=== PATIENT | female | born 1970 | race Caucasian/White ===

== ENCOUNTER 2016-05-01 18:12 | Emergency (ER) | payer SELFPAY ==
[2016-05-01 18:43] VITALS: TEMP 97.4; BMI 31.3
--- NOTE | 2016-05-01 19:05 | EDPRACDOC ---
- General Information Chief Complaint: Anxiety Illness Stated Complaint: ANXIETY? Time Seen by Provider: 05/01/16 18:57 Mode Of Arrival: Car Home Medications: Home Medications Furosemide [Lasix] 20 - 40 mg PO BID 01/25/16 Hydrochlorothiazide 25 mg PO DAILY 01/25/16 Potassium Chloride 10 meq PO DAILY 01/25/16 Alprazolam [Xanax] 1 mg PO TID PRN #10 tablet 05/01/16 Hydrocodone Bit/Acetaminophen [[place] 10-325 Tablet] 1 tab PO TID PRN #10 tablet 05/01/16 Tramadol HCl [Ultram] 50 mg PO TID PRN #10 tablet 05/01/16 Allergies/Adverse Reactions: Allergies Allergy/AdvReac Type Severity Reaction Status Date / Time No Known Allergies Allergy Verified 01/25/16 06:56 - History of Present Illness Onset: 5 days HPI: PT COMPLAINS OF N/V AND GENERALIZED SWELLING X 5 DAYS, STATES OUT OF HER XANAX, HYDROCODONE AND ULTRAM FOR 5 DAYS. FAMILY STATES SHE HAS HAD FACIAL SWELLING AND SWELLING TO EXTREMITIES SINCE BEFORE , STATES WAS PLACED ON LASIX TEMPORARILY WITHOUT RELIEF. Symptoms Occured: Reports: Spontaneous Duration: Reports: Intermittent Emesis: Reports: Food Particles Recent: Reports: None Pain Quality: Reports: Cramping Pain Severity: Mild Pain Location: Reports: Diffuse : No History of: Denies: Abdominal Surgery, UTI, Ectopic, PID, Urolithiasis, Similar Pain (dx) Relevant History of: Denies: Abdominal Surgery, Diabetes, Contact Exposure, Hydrocephalus, HIV, Immunosuppression, Irritable Bowel Disease, Cystic Fibrosis , Lactose Intolerance, None, O Associated Signs & Symptoms: Reports: Nausea, Vomiting, Diarrhea, Chills. Denies: Frequency, Vaginal Bleeding, Hematemesis, Anorexia, Melena, Dysuria, Fever, Urgency, Hematuria, Vaginal Discharge Oral Intake: Decreased Urinary Output: Normal ED Past Medical History - History Reviewed Yes Nurses notes reviewed and agree except as marked - Patient Medical History Cardiac History: Reports: Hypertension GI/ History: Reports: Kidney Stones Psychological History: Reports: Depression (not medicated), Anxiety Additional Past Medical History: CHRONIC BACK PAIN Surgical History: Reports: Cholecystectomy. Denies: Hysterectomy - Social Medical History Smoking Status: Heavy tobacco smoker (5 or more cigarettes/day or daily pipe/ cigar) ETOH: Social Substance Abuse: None EDM Review of Systems - Review of Systems Constitutional: Fatigue. negative: Chills, Fever Eyes: negative: Blurred Vision, Double Vision Ears: negative: Drainage Throat: negative: Pain Nose: negative: Congestion, Discharge Respiratory: negative: Cough, Shortness of Breath, Wheezing Cardiovascular: Edema. negative: Chest Pain, Palpitations Gastrointestinal: Diarrhea, Nausea, Pain, Vomiting Genitourinary: negative: Dysuria, Frequency Neurological: Dizziness, Numbness. negative: Headache, Weakness Musculoskeletal: No Symptoms Reported Integumentary: No Symptoms Reported - Physical Exam Constitutional: No apparent distress, Alert (Awake), Restless Oriented to: Time, Person, Place Last recorded Vital Signs: Last Vital Signs Temp 97.4 F L 05/01/16 18:36 Pulse 117 05/01/16 18:36 Resp 22 05/01/16 18:36 BP 171/94 05/01/16 18:36 Pulse Ox 96 05/01/16 18:36 Oxygen Pulse Oxygen Saturation 96 O2 Device Oxygen Flow Rate Fraction of Inspired Oxygen ( FIO2) - HEENT Head: Normal ( normocephalic) Eye Exam: Normal (PERRL, EOMI, Sclera white) Oropharynx: Normal (Pharynx:Moist without exudate,Gums-no swelling) Tympanic Membrane: Normal ENT EAC: Normal TMJ: Normal Nose: No Symptoms Reported (septum midline) Neck: Normal (FROM, trachea at midline) - Respiratory/Cardiovascular Respiratory: Normal - CTA (BBS clear to auscultation without adventitious sounds ) Cardiovascular: Normal (RRR without murmur, gallop or rub) - GI Auscultation: Normal (NABS) Palpation: Normal (Soft,No rebound or guarding, non distended) Tenderness: Non tender Bowman's Sign: Negative - Musculoskeletal Back: Normal (Non-Tender) Extremities: Normal (Normal tone, Pulses 2+ No cyanosis or edema, FROM) - Integumentary Skin: Normal, Warm, Dry Lymphatics: Normal (no adenopathy) - Neurologic Memory Impaired: Normal Motor Function: Normal (Normal tone, Pulses 2+ No cyanosis or edema, FROM) Cranial Nerve: Normal (CN II-X11 intact sensation, strength 5/5) Cerebellar: Normal Mood Description: Anxious Thought: Coherent Perception: Normal - Differential Diagnosis Gastritis, Gastroenteritis, IBD, Pancreatitis, Other (OPIATE/BENZO WITHDRAWL) - Re-evaluation Re-evaluation 1 Re-evaluation Time: 20:47 ( STATES SHE HAS BEEN DRINKING ABOUT A PINT OF LIQUOR A DAY RECENTLY AND NOT EATING WELL) Re-evaluation 2 Re-evaluation Time: 22:46 (IMPROVED NO FURTHER VOMITING IN ED, SUSPECT SYMPTOMS RELATED TO WITHDRAWAL, PT STATES PCP WILL NOT BE OPEN UNTIL THURSDAY.) - Results 05/01/16 19:34 05/01/16 19:34 Decision Time to Discharge: 22:50 - Departure Disposition: Home Condition: Stable Final Diagnosis: ACUTE NAUSEA AND VOMITING, Opiate withdrawal Benzodiazepine withdrawal Qualifiers: Complication of substance-induced condition: uncomplicated Qualified Code(s): F13.230 - Sedative, hypnotic or anxiolytic dependence with withdrawal, uncomplicated Instructions: Acute Nausea and Vomiting (ED) Education/Counseling Given To: Patient Education/Counseling Given Regarding: Diagnosis, Treatment, Prognosis, Follow Up Referrals: Yonathan Gates MD [NonStaff] - One Week Prescriptions: Alprazolam [Xanax] 1 mg PO TID PRN #10 tablet PRN Reason: Anxiety Hydrocodone Bit/Acetaminophen [[place] 10-325 Tablet] 1 tab PO TID PRN #10 tablet PRN Reason: Pain Tramadol HCl [Ultram] 50 mg PO TID PRN #10 tablet PRN Reason: Pain Additional Instructions: REST, DRINK PLENTY OF FLUIDS, ADVANCE DIET TOLERATED, YOU MUST FOLLOW UP WITH YOUR DOCTOR ON THURSDAY, THE ED WILL NOT BE REFILLING PRESCRIPTIONS FOR CHRONIC PAIN AND ANXIETY BEYOND TONIGHT'S VISIT.
[2016-05-01] MEDS ORDERED: NS 1,000 ML IV ONE ×2 (19:06→21:05)
[2016-05-01] MEDS ORDERED: LORAZEPAM 2 MG/ML VIAL IV ONE ×2 (19:06→20:07)
[2016-05-01 19:42] LABS: MPV 7.6 fL (7.4-10.4)
[2016-05-01 19:57] LABS: BLOOD UREA NITROGEN 6 MG/DL (7-17); CALC CORRECTED 8.7 MG/DL (8.4-10.2); CALCIUM 8.5 MG/DL (8.4-10.2); CALCULATED OSMOLALITY 261 MOs/Kg (270-290); CHLORIDE 97 mEq/L (98-107); GLUCOSE 113 MG/DL (70-99); SODIUM LEVEL 136 mEq/L (137-146)
[2016-05-01] MEDS ORDERED: POTASSIUM CHLORIDE 20 MEQ/15 ML ORAL SOLN PO ONE (20:07)
[2016-05-01] MEDS ORDERED: ONDANSETRON HCL 4 MG/2 ML VIAL IV ONE (20:09)
[2016-05-01 20:20] LABS: SEG NEUTROPHIL 80 % (45-76)
[2016-05-01 20:22] LABS: ALL NEG? NO
[2016-05-01 20:24] LABS: LEUKOCYTES/URINE NEG (NEGATIVE); NITRITE/URINE NEG (NEGATIVE); URINE OCCULT BLOOD NEG (NEG/TRACE)
[2016-05-01 20:29] LABS: WBC/URINE 0-2 (0-5)
[2016-05-01 20:31] LABS: MDMA* NEG (NEGATIVE); METHAMPHETAMINES NEG (NEGATIVE); OXYCODONE NEG (NEGATIVE)
--- NOTE | 2016-05-01 21:09 | DIRPT ---
CLINICAL DATA: Acute onset of nausea, vomiting and generalized abdominal swelling. Initial encounter. EXAM: DG ABDOMEN ACUTE W/ 1V CHEST COMPARISON: CT of the abdomen and pelvis performed 12/02/2010 FINDINGS: The lungs are well-aerated and clear. There is no evidence of focal opacification, pleural effusion or pneumothorax. The cardiomediastinal silhouette is within normal limits. The visualized bowel gas pattern is unremarkable. Scattered stool and air are seen within the colon; there is no evidence of small bowel dilatation to suggest obstruction. No free intra-abdominal air is identified on the provided upright view. No acute osseous abnormalities are seen; the sacroiliac joints are unremarkable in appearance. Clips are noted within the right upper quadrant, reflecting prior cholecystectomy. IMPRESSION: 1. Unremarkable bowel gas pattern; no free intra-abdominal air seen. Small to moderate amount of stool noted in the colon. 2. No acute cardiopulmonary process seen. Electronically Signed By: Dalton Mar M.D. On: 05/01/2016 21:07
[2016-05-01 23:08] VITALS: BP 155/101; PULSE 113
== END 2016-05-01 23:06 | disposition home or self-care (01) ==
LOC: ED 18:12
DX: F11.23 Opioid dependence with withdrawal (principal)
CPT/HCPCS: 36415; 74022; 80053; 80307; 81001; 81025; 83735; 85007; 85027; 96361; 96374; 96375; 96376; 99283; J2060; J2405; J3490